=== PATIENT | male | born 1995 | race Caucasian/White ===

== ENCOUNTER 2020-09-01 18:40 | Emergency (ER) | payer SELFPAY ==
[~2020-09-01] VITALS: Ht 193 cm; Wt 126.5 kg
[~2020-09-01 18:40] MED LIST: RIVA15TA2 PO; RIVA20TA2 PO
--- NOTE | 2020-09-01 18:59 | ED Chest Pain ---
General Stated Complaint: CP Source: patient Exam Limitations: no limitations History of Present Illness Date Seen by Provider: Sep 01, 2020 Time Seen by Provider: 18:57 Initial Comments To ER with reports of chest pain that started earlier this afternoon. Chest pain is to the left of the sternal border at about the fifth or sixth intercostal space. Pain is only present when taking a deep breath. 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 He does not have a cough fevers or chills. He is not short of breath. He had A few beers before coming in here this evening. Timing/Duration: 1-2 days Severity/Quality: moderate Location: central Radiation: no radiation Activities at Onset: none Prior CP/Workup: no prior chest pain ASA po RESIDENTIAL FRAMING [employer]PENTER: No NTG SL RESIDENTIAL FRAMING CARPENTER: No Associated Symptoms: No shortness of breath Allergies and Home Medications Allergies Coded Allergies: No Known Drug Allergies (Unverified , 10/14/11) Home Medications Rivaroxaban 15 Mg Tablet, 15 MG PO BID Prescribed by: JORGE MCKEON on 11/02/15 1342 Rivaroxaban 20 Mg Tablet, 20 MG PO DAILY AFTER 3 WEEKS OF 15 MG TWICE A DAY, TAKE 20MG DAILY FOR A TOTAL OF 3 MONTHS. Prescribed by: JORGE MCKEON on 11/02/15 1342 Patient Home Medication List Home Medication List Reviewed: Yes Review of Systems Review of Systems Constitutional: see HPI EENTM: No Symptoms Reported Respiratory: See HPI, Cough Cardiovascular: See HPI, Chest Pain Gastrointestinal: See HPI Genitourinary: No Symptoms Reported Musculoskeletal: no symptoms reported Skin: no symptoms reported Psychiatric/Neurological: No Symptoms Reported Endocrine: No Symptoms Reported Hematologic/Lymphatic: No Symptoms Reported Physical Exam Vital Signs Vital Signs - First Documented 09/01/20 19:06 Temp 36.9 Pulse 110 Resp 20 B/P (MAP) 143/100 (114) Pulse Ox 98 O2 Delivery Room Air Capillary Refill : Height, Weight, BMI Height: 6'4.00" Weight: 300lbs. 0.0oz. [id number]; BMI Method:Stated General Appearance: No Apparent Distress, WD/WN HEENT: PERRL/EOMI, TMs Normal Neck: Full Range of Motion, Normal Inspection Respiratory: Normal Breath Sounds, No Accessory Muscle Use, No Respiratory Distress Cardiovascular: Regular Rate, Rhythm, Normal Peripheral Pulses Extremity: Normal Capillary Refill, Normal Inspection Neurologic/Psychiatric: Alert, Oriented x3 Skin: Normal Color, Warm/Dry Progress/Results/Core Measures Results/Orders Lab Results Laboratory Tests Test 09/01/20 19:09 Range/Units White Blood Count 7.7 4.3-11.0 10^3/uL Red Blood Count 5.30 4.30-5.52 10^6/uL Hemoglobin 15.8 13.3-17.7 g/dL Hematocrit 46 40-54 % Mean Corpuscular Volume 86 80-99 fL Mean Corpuscular Hemoglobin 30 25-34 pg Mean Corpuscular Hemoglobin Concent 35 32-36 g/dL Red Cell Distribution Width 12.1 10.0-14.5 % Platelet Count 199 130-400 10^3/uL Mean Platelet Volume 10.1 9.0-12.2 fL Immature Granulocyte % (Auto) 0 % Neutrophils (%) (Auto) 55 42-75 % Lymphocytes (%) (Auto) 38 12-44 % Monocytes (%) (Auto) 5 0-12 % Eosinophils (%) (Auto) 2 0-10 % Basophils (%) (Auto) 0 0-10 % Neutrophils # (Auto) 4.2 1.8-7.8 10^3/uL Lymphocytes # (Auto) 2.9 1.0-4.0 10^3/uL Monocytes # (Auto) 0.4 0.0-1.0 10^3/uL Eosinophils # (Auto) 0.1 0.0-0.3 10^3/uL Basophils # (Auto) 0.0 0.0-0.1 10^3/uL Immature Granulocyte # (Auto) 0.0 0.0-0.1 10^3/uL D-Dimer 0.34 0.00-0.49 UG/ML Sodium Level 137 135-145 MMOL/L Potassium Level 3.5 L 3.6-5.0 MMOL/L Chloride Level 102 98-107 MMOL/L Carbon Dioxide Level 18 L 21-32 MMOL/L Anion Gap 17 H 5-14 MMOL/L Creatinine 0.81 0.60-1.30 MG/DL Estimat Glomerular Filtration Rate > 60 Glucose Level 168 H 70-105 MG/DL Calcium Level 9.7 8.5-10.1 MG/DL My Orders Orders - RAF RODRIGUEZ APRN Cbc With Automated Diff (09/01/20 18:56) Fibrin Degradation Products (09/01/20 18:56) Basic Metabolic Panel (09/01/20 18:56) Chest 1 View, Ap/Pa Only (09/01/20 18:56) Ekg Tracing (09/01/20 18:56) Vital Signs/I&O 09/01/20 19:06 Temp 36.9 Pulse 110 Resp 20 B/P (MAP) 143/100 (114) Pulse Ox 98 O2 Delivery Room Air Departure Communication (Admissions) Alcohol use before coming in here can explain his anion gap. Impression Primary Impression: Chest wall pain Disposition: HOME, SELF-CARE Condition: Stable Departure-Patient Inst. Decision time for Depature: 19:31 Referrals: HERMAN ALICEA MD (PCP) Primary Care Physician GIO QUISPE (Family) Primary Care Physician Patient Instructions: Pleuritic Chest Pain (DC) Add. Discharge Instructions: 1. Return to ER for any concerns. Follow-up with your doctor next week. RAF RODRIGUEZ APRN Sep 01, 2020 18:59
[2020-09-01 19:15] LABS: BASOPHILS % (AUTO) 0 % (0-10); EOSINOPHILS # (AUTO) 0.1 10^3/uL (0.0-0.3); EOSINOPHILS % (AUTO) 2 % (0-10); HEMATOCRIT 46 % (40-54); HEMOGLOBIN 15.8 g/dL (13.3-17.7); LYMPHOCYTES # (AUTO) 2.9 10^3/uL (1.0-4.0); LYMPHOCYTES % (AUTO) 38 % (12-44); MEAN CORPUSCULAR HEMOGLOBIN 30 pg (25-34); MEAN CORPUSCULAR HGB CONC 35 g/dL (32-36); MEAN CORPUSCULAR VOLUME 86 fL (80-99); MEAN PLATELET VOLUME 10.1 fL (9.0-12.2); MONOCYTES # (AUTO) 0.4 10^3/uL (0.0-1.0); MONOCYTES % (AUTO) 5 % (0-12); NEUTROPHILS # (AUTO) 4.2 10^3/uL (1.8-7.8); NEUTROPHILS % (AUTO) 55 % (42-75); PLATELET COUNT 199 10^3/uL (130-400); WHITE BLOOD COUNT 7.7 10^3/uL (4.3-11.0)
[2020-09-01 19:26] LABS: CHLORIDE 102 MMOL/L (98-107); POTASSIUM 3.5 MMOL/L (3.6-5.0); SODIUM 137 MMOL/L (135-145)
[2020-09-01 19:27] LABS: CALCIUM 9.7 MG/DL (8.5-10.1); GLUCOSE 168 MG/DL (70-105)
[2020-09-01 19:29] LABS: CARBON DIOXIDE 18 MMOL/L (21-32)
[2020-09-01 19:31] LABS: CREATININE SERUM 0.81 MG/DL (0.60-1.30); GFR ESTIMATED > 60
--- NOTE | 2020-09-01 19:31 | Diagnostic Imaging Report ---
EXAMINATION: Chest 1 view. HISTORY: Left-sided chest pain. COMPARISON: 09/26/2015. FINDINGS: The lung volumes are normal. No focal consolidation is seen. No large pleural effusion or pneumothorax is seen. The cardiomediastinal silhouette is normal in size and contour. No acute osseous abnormality is seen. IMPRESSION: No acute pleuroparenchymal process. Dictated by: Dictated on workstation # [id number]
[2020-09-01 19:32] LABS: BUN/CREATININE RATIO 11
[2020-09-01 19:56] VITALS: BP 125/100
== END 2020-09-01 19:55 | disposition home or self-care (01) ==
LOC: EDUNIT# 18:40 → ER 18:42
DX: R07.89 Other chest pain (principal); Z79.01 Long term (current) use of anticoagulants
CPT/HCPCS: 36415; 71045; 80048; 85025; 85379; 93005